=== PATIENT | female | born 1960 | race African-American/Black ===

== ENCOUNTER 2021-06-30 11:57 | Emergency (ER) | payer BC, MEDICAID ==
[~2021-06-30] VITALS: Ht 172.7 cm; Wt 67.1 kg
[2021-06-30] MEDS ORDERED: HYDROcodone-ACET 10/325MG TAB PO ONE (12:45)
[2021-06-30] MEDS ORDERED: ONDANSETRON ODT 4 MG TAB PO ONE (12:45)
[2021-06-30 14:08] LABS: Basophils # (auto) 0.1 10 ^3/uL (0-0.2); Basophils % (auto) 1.3 % (0.0-2.0); Eosinophils # (auto) 0.2 10 ^3/uL (0-0.8); Eosinophils % (auto) 3.5 % (0.0-7.0); Hematocrit 44.1 % (36.0-46.0); Hemoglobin 14.8 g/dL (12.2-16.2); Lymphocytes # (auto) 1.1 10 ^3/uL (0.4-5.4); Lymphocytes % (auto) 18.6 % (10.0-50.0); Mean Corpuscular Hemoglobin 32.5 pg (28.0-32.0); Mean Corpuscular Hgb Conc. 33.6 g/dL (32.0-36.0); Mean Corpuscular Volume 96.7 fL (80.0-100.0); Monocytes # (auto) 0.3 10 ^3/uL (0-1.3); Neutrophils # (auto) 4.3 10 ^3/uL (1.6-8.6); Neutrophils % (auto) 71.6 % (37.0-80.0); Nucleated Red Blood Cells % 0.1 %; Red Blood Cells 4.56 10^6/uL (4.0-5.20); Red Cell Distribution Width 16.5 % (11.8-14.3)
[2021-06-30 14:22] LABS: Albumin 4.2 g/dL (3.4-5.0); BUN/Creatinine Ratio 10.3; Potassium 4.4 mmol/L (3.5-5.1)
[2021-06-30 14:25] LABS: Bilirubin, Total 0.3 mg/dL (0.2-1.0); Total Protein 7.5 g/dL (6.4-8.2)
[2021-06-30] MEDS ORDERED: LIDOCAINE 1%HCL (LOCAL ANESTH) 10 ML MDV ONE (14:56)
[2021-06-30] MEDS ORDERED: TETANUS-DIPTH-ACEL PERTUSSIS 0.5ML SYR Tdap IM ONE (15:00)
[2021-06-30] MEDS ORDERED: traMADol HCL 50 MG TAB PO ONE (15:00)
[2021-06-30 15:38] VITALS: BP 146/90
[2021-06-30] MEDS ORDERED: CEPH-322 PO ×2 (16:03→16:14)
== END 2021-06-30 17:30 | disposition home or self-care (01) ==
LOC: ER 12:01
DX: S01.81XA Laceration without foreign body of other part of head, initial encounter (principal); Z79.899 Other long term (current) drug therapy; Z88.5 Allergy status to narcotic agent; Z88.8 Allergy status to other drugs, medicaments and biological substances; W01.0XXA Fall on same level from slipping, tripping and stumbling without subsequent striking against object, initial encounter; Y93.89 Activity, other specified; Y92.89 Other specified places as the place of occurrence of the external cause; Y99.8 Other external cause status
CPT/HCPCS: 12011; 36415; 70450; 71045; 74176; 80053; 85025; 90471; 90715; 99285; J2001; Q0162